=== PATIENT | male | born 1975 | race Caucasian/White ===

== ENCOUNTER 2017-01-22 14:14 | Emergency (ER) | payer SELFPAY ==
[2017-01-22 14:21] VITALS: BP 132/76; PULSE 100; TEMP 99.6; BMI 27.6
[2017-01-22] MEDS ORDERED: IBUPROFEN 600 MG TABLET (FP) PO ONE ×2 (16:00→16:03)
--- NOTE | 2017-01-22 16:17 | PDOC ---
History of Present Illness - General Chief Complaint: Pain Stated Complaint: PAIN Time Seen by Provider: 01/22/17 15:25 History Source: Patient Exam Limitations: No Limitations - History of Present Illness Initial Comments: 01/22/17 16:06 Patient is a 41-year-old male, no significant medical history, currently on no medication, presents emergency department for evaluation of generalized aches and pains, sore throat, fever Tmax of 101 on Saturday. Patient has not tried to take any Motrin or Tylenol, has only taken NyQuil at night. Patient states "I'm just not feeling well". Patient denies any cough, no nausea vomiting or diarrhea , intermittent headache. Generalized musculoskeletal pain with no defined joint pains. Past Medical History: Denies. Allergies: No known allergies Medications: None Family History: Non-contributory Social History: Smokes one pack per day, no alcohol use, or IVDU Review of Systems GENERAL/CONSTITUTIONAL: Fever and chills, generalized aches and pains. No weakness. No weight change. HEAD, EYES, EARS, NOSE AND THROAT: No change in vision. No ear pain or discharge. Sore throat. CARDIOVASCULAR: No chest pain or shortness of breath. RESPIRATORY: No cough, wheezing, or hemoptysis. GASTROINTESTINAL: No nausea, vomiting, diarrhea or constipation. No rectal bleeding. GENITOURINARY: No dysuria, frequency, or change in urination. MUSCULOSKELETAL: No joint or muscle swelling or pain. No neck or back pain. SKIN AND BREASTS: No rash or easy bruising. NEUROLOGIC: No headache, vertigo, loss of consciousness, or loss of sensation. PSYCHIATRIC: No depression or anxiety. ENDOCRINE: No increased thirst. No abnormal weight change. HEMATOLOGIC/LYMPHATIC: No anemia, easy bleeding, or history of blood clots. ALLERGIC/IMMUNOLOGIC: No hives or skin allergy. No latex allergy. Physical Exam: GENERAL: The patient is awake, alert, and fully oriented, in no acute distress. HEAD: Normal with no signs of trauma. EYES: Pupils equal, round and reactive to light, extraocular movements intact, sclera anicteric, conjunctiva clear. ENT: Ears normal, nares patent, oropharynx clear without exudates. Moist mucous membranes. No uvula deviation NECK: Normal range of motion, supple without lymphadenopathy, JVD, or masses. LUNGS: Breath sounds equal, clear to auscultation bilaterally. No wheezes, and no crackles. HEART: Regular rate and rhythm, normal S1 and S2 without murmur, rub or gallop. ABDOMEN: Soft, nontender, normoactive bowel sounds. No guarding, no rebound. No masses. No bruising or abrasions RECTAL : Guaiac negative, normal rectal tone. MUSCULOSKELETAL: Normal range of motion, no edema. No clubbing or cyanosis. No cords, erythema, or tenderness. No CVA Tenderness with fist. NEUROLOGICAL: Cranial nerves II through XII grossly intact. Normal speech, normal gait. SKIN: Warm, Dry, normal turgor, no rashes or lesions noted. Past History - Past Medical History Allergies/Adverse Reactions: Allergies Allergy/AdvReac Type Severity Reaction Status Date / Time No Known Allergies Allergy Verified 01/22/17 14:21 Home Medications: Ambulatory Orders Ibuprofen [Motrin -] 600 mg PO QID #28 tablet 01/22/17 - Psycho/Social/Smoking Cessation Hx Suicidal Ideation: No Smoking History: Current every day smoker Number of Cigarettes Smoked Daily: 20 Information on smoking cessation initiated: No *Physical Exam - Vital Signs Last Vital Signs Temp Pulse Resp BP Pulse Ox 99.6 F 100 H 18 132/76 97 01/22/17 14:17 01/22/17 14:17 01/22/17 14:17 01/22/17 14:17 01/22/17 14:17 Medical Decision Making - Medical Decision Making 01/22/17 16:17 A/P: Patient here for evaluation of fever for 3 days. Has not attempted to take any antipyretic or anti-inflammatory to reduce pain or fever. Current temperature is 99, patient appears well. Eating and drinking without difficulty , rapid strep sent and rapid influenza. Motrin given. 01/22/17 16:43 Rapid influenza and rapid strep and negative, patient with viral symptoms has not been treating herself for fever, will DC patient home on Motrin as needed for fever greater than 101 if fever persists more than 3 days to follow up with PMD. I discussed the physical exam findings, ancillary test results and final diagnoses with the patient. I answered all of the patient's questions. The patient was satisfied with the care received and felt comfortable with the discharge plan and treatment plan. The patient will call to arrange follow-up and will return to the Emergency Department with any new, persistent or worsening symptoms. *DC/Admit/Observation/Transfer Diagnosis at time of Disposition: Fever Qualifiers: Fever type: due to other condition Qualified Code(s): R50.81 - Fever presenting with conditions classified elsewhere - Discharge Dispostion Disposition: HOME Condition at time of disposition: Good Admit: No - Prescriptions Prescriptions: Ibuprofen [Motrin -] 600 mg PO QID #28 tablet - Referrals Referrals: [facility] [Provider Group] - Patient Instructions Printed Discharge Instructions: DI for Fever (Symptom) -- Adult Additional Instructions: Recommend follow-up with primary care doctor in 2 days if symptoms persist Please medicate for fever greater than 101 take either Motrin or Tylenol, may alternate every 4 hours as needed - Post Discharge Activity Work/School Note: Back to Work
== END 2017-01-22 17:30 | disposition home or self-care (01) ==
LOC: JERFT 14:14
DX: R50.9 Fever, unspecified (principal)
CPT/HCPCS: 36415; 87070; 87430; 87804; 99281-25

== ENCOUNTER 2017-08-16 11:27 | Inpatient (IN) | payer SELFPAY ==
[2017-08-16 12:53] VITALS: BMI 26.6
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
[2017-08-16] MEDS ORDERED: chlordiazePOXIDE HCL 25 MG CAPSULE PO ONE (16:20)
[2017-08-16] MEDS ORDERED: MAG HYDROX/AL HYDROX/SIMETH 30 ML UNIT-DOSE CUP PO PRN (16:20)
[2017-08-16] MEDS ORDERED: MAGNESIUM CITRATE 300 ML BOTTLE PO PRN (16:20)
[2017-08-16] MEDS ORDERED: guaiFENesin/D-METHORPHAN HB 10 ML UNIT-DOSE CUPS PO PRN (16:20)
[2017-08-16] MEDS ORDERED: LOPERAMIDE HCL 2 MG CAPSULE PO PRN (16:20)
[2017-08-16] MEDS ORDERED: MENTHOL/PHENOL 1 EACH UD MM PRN (16:20)
[2017-08-16] MEDS ORDERED: NICOTINE POLACRILEX 4 MG GUM BC PRN (16:20)
[2017-08-16] MEDS ORDERED: chlordiazePOXIDE HCL 25 MG CAPSULE PO PRN (16:20)
[2017-08-16] MEDS ORDERED: P-EPHED 60MG/TRIPROLIDI 2.5MG TABLET PO PRN (16:20)
[2017-08-16] MEDS ORDERED: MAGNESIUM HYDROX 2400MG/30ML ORAL SUSPENSION 30 ML CUP PO PRN (16:20)
[2017-08-16] MEDS ORDERED: ACETAMINOPHEN 325 MG TABLET (FP) PO PRN (16:20)
[2017-08-16] MEDS ORDERED: cloNIDine HCL 0.1 MG TABLET PO ONE (17:00)
[2017-08-16] MEDS: chlordiazePOXIDE HCL 25 MG CAPSULE PO SCH ×2 (19:14→22:22)
[2017-08-16] MEDS: NICOTINE 21 MG/24 HOURS TOPICAL PATCH TD SCH (19:14)
[2017-08-16] MEDS: THIAMINE HCL 100 MG TABLET (FP) PO SCH (22:22)
[2017-08-17 00:06] LABS: URINE APPEARANCE CLEAR; URINE BILIRUBIN NEGATIVE (NEGATIVE); URINE BLOOD NEGATIVE (NEGATIVE); URINE COLOR COLORLESS; URINE GLUCOSE (UA) NEGATIVE (NEGATIVE); URINE KETONE NEGATIVE (NEGATIVE); URINE LEUK ESTERASE NEGATIVE (NEGATIVE); URINE NITRITE NEGATIVE (NEGATIVE); URINE PROTEIN NEGATIVE (NEGATIVE); URINE UROBILINOGEN NEGATIVE mg/dL (0.2-1.0)
[2017-08-17] MEDS: chlordiazePOXIDE HCL 25 MG CAPSULE PO SCH ×4 (05:46→22:43)
[2017-08-17] MEDS ORDERED: COLLOIDAL OATMEAL 1 BAR EACH TP PRN (09:12)
[2017-08-17] MEDS: NICOTINE 21 MG/24 HOURS TOPICAL PATCH TD SCH (10:33)
[2017-08-17] MEDS: PRENATAL VITAMINS W/ FOLIC ACID TABLET (FP) PO SCH (10:33)
--- NOTE | 2017-08-17 12:20 | EKG ---
Test Reason : Blood Pressure : / mmHG Vent. Rate : 086 BPM Atrial Rate : 086 BPM P-R Int : 160 ms QRS Dur : 092 ms QT Int : 366 ms P-R-T Axes : -03 -11 003 degrees QTc Int : 437 ms NORMAL SINUS RHYTHM NORMAL ECG NO PREVIOUS ECGS AVAILABLE Confirmed by TEENA OROURKE MD ([id number]) on 08/17/2017 12:20:16 PM Referred By: Confirmed By:TEENA OROURKE MD
[2017-08-17 12:25] LABS: HEMATOCRIT 44.1 % (35.4-49); HEMOGLOBIN 14.4 GM/dL (11.7-16.9); MCH 31.8 pg (25.7-33.7); MCHC 32.7 g/dl (32.0-35.9); MEAN CELL VOLUME 97.1 fl (80-96); MEAN PLT VOLUME 8.3 fl (7.5-11.1); PLATELET COUNT 215 K/MM3 (134-434); RBC 4.54 M/mm3 (4.00-5.60); RDW 15.3 % (11.9-15.9); WHITE BLOOD COUNT 5.3 K/mm3 (4.0-10.0)
[2017-08-17 12:48] LABS: ALBUMIN 4.4 g/dl (3.4-5.0); ANION GAP 7 (8-16); BLOOD UREA NITROGEN 12 mg/dL (7-18); CALCIUM 8.5 mg/dL (8.5-10.1); CHLORIDE 102 mmol/L (98-107); CO2 28 mmol/L (21-32); GLUCOSE,RANDOM 119 mg/dL (74-106); POTASSIUM 3.9 mmol/L (3.5-5.1); SGOT/AST 83 U/L (15-37); SGPT/ALT 88 U/L (12-78); SODIUM 137 mmol/L (136-145)
[2017-08-17 12:50] LABS: ALK PHOS 83 U/L (45-117); BILIRUBIN,TOTAL 0.4 mg/dL (0.2-1.0); TOT PROT 7.9 g/dl (6.4-8.2)
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
--- NOTE | 2017-08-17 17:03 | PN ---
[facility] CIWA - CIWA Score Nausea/Vomitin-No Nausea/No Vomiting Muscle Tremors: 2 Anxiety: 4-Mod. Anxious/Guarded Agitation: 4-Moderately Restless Paroxysmal Sweats: 3 Orientation: 0-Oriented Tacttile Disturbances: 2-Mild Itch/Numbness/Burn Auditory Disturbances: 0-None Visual Disturbances: 1-Very Mild Sensitivity Headache: 0-None Present CIWA-Ar Total Score: 16 S Progress Note (SOAP) Subjective: Sweating, Anxious, Interrupted Sleep, Tremors. Objective: PT. A & O X 3, OBSERVED AMBULATING ON UNIT. NO ACUTE DISTRESS. 08/17/17 17:02 Vital Signs Temperature 97.0 F L 08/17/17 14:42 Pulse Rate 81 08/17/17 14:42 Respiratory Rate 17 08/17/17 14:42 Blood Pressure 116/73 08/17/17 14:42 O2 Sat by Pulse Oximetry (%) Laboratory Tests 08/16/17 08/17/17 08/17/17 15:38 06:00 06:00 WBC 5.3 RBC 4.54 Hgb 14.4 Hct 44.1 MCV 97.1 H MCH 31.8 MCHC 32.7 RDW 15.3 Plt Count 215 MPV 8.3 Sodium 137 Potassium 3.9 Chloride 102 Carbon Dioxide 28 Anion Gap 7 L BUN 12 Creatinine 1.0 Creat Clearance w eGFR > 60 Random Glucose 119 H Calcium 8.5 Total Bilirubin 0.4 AST 83 H ALT 88 H Alkaline Phosphatase 83 Total Protein 7.9 Albumin 4.4 Urine Color Colorless Urine Appearance Clear Urine pH 6.0 Ur Specific [place] 1.002 Urine Protein Negative Urine Glucose (UA) Negative Urine Ketones Negative Urine Blood Negative Urine Nitrite Negative Urine Bilirubin Negative Urine Urobilinogen Negative Ur Leukocyte Esterase Negative RPR Titer HIV 1&2 Antibody Screen HIV P24 Antigen 08/17/17 08/17/17 06:00 06:00 WBC RBC Hgb Hct MCV MCH MCHC RDW Plt Count MPV Sodium Potassium Chloride Carbon Dioxide Anion Gap BUN Creatinine Creat Clearance w eGFR Random Glucose Calcium Total Bilirubin AST ALT Alkaline Phosphatase Total Protein Albumin Urine Color Urine Appearance Urine pH Ur Specific [place] Urine Protein Urine Glucose (UA) Urine Ketones Urine Blood Urine Nitrite Urine Bilirubin Urine Urobilinogen Ur Leukocyte Esterase RPR Titer Nonreactive HIV 1&2 Antibody Screen Negative HIV P24 Antigen Negative LABS NOTED. HCV AB RESULT PENDING. 08/17/17 17:03 Assessment: 08/17/17 17:02 WITHDRAWAL SYMPTOMS. Plan: CONTINUE DETOX. INCREASE DAILY PO FLUID INTAKE.
[2017-08-17] MEDS: THIAMINE HCL 100 MG TABLET (FP) PO SCH (22:43)
[2017-08-17] MEDS: hydrOXYzine PAMOATE 50 MG CAPSULE (FP) PO PRN (22:55)
[2017-08-17] MEDS: IBUPROFEN 400 MG TABLET (FP) PO PRN (22:56)
[2017-08-18] MEDS: chlordiazePOXIDE HCL 25 MG CAPSULE PO SCH ×2 (05:34→10:33)
[2017-08-18] MEDS: PRENATAL VITAMINS W/ FOLIC ACID TABLET (FP) PO SCH (10:33)
[2017-08-18] MEDS: NICOTINE 21 MG/24 HOURS TOPICAL PATCH TD SCH (10:33)
[2017-08-18] MEDS: chlordiazePOXIDE 5 MG CAPSULE PO SCH ×2 (17:22→22:28)
[2017-08-18] MEDS: IBUPROFEN 400 MG TABLET (FP) PO PRN (17:24)
--- NOTE | 2017-08-18 17:30 | PN ---
S CIWA - CIWA Score Nausea/Vomitin Muscle Tremors: 3 Anxiety: 3 Agitation: 2 Paroxysmal Sweats: 1-Minimal Palms Moist Orientation: 0-Oriented Tacttile Disturbances: 1-Very Mild Itch/Numbness Auditory Disturbances: 1-Very Mild Visual Disturbances: 1-Very Mild Sensitivity Headache: 2-Mild CIWA-Ar Total Score: 17 BHS Progress Note (SOAP) Subjective: ALERT,IRRITABLE,ANXIOUS,INTERRUPTED SLEEP,TREMOR Objective: 08/18/17 17:28 Vital Signs Temperature 95.7 F L 08/18/17 13:52 Pulse Rate 77 08/18/17 13:52 Respiratory Rate 18 08/18/17 13:52 Blood Pressure 115/80 08/18/17 13:52 O2 Sat by Pulse Oximetry (%) 08/18/17 17:29 Laboratory Last Values WBC 5.3 K/mm3 (4.0-10.0) 08/17/17 06:00 RBC 4.54 M/mm3 (4.00-5.60) 08/17/17 06:00 Hgb 14.4 GM/dL (11.7-16.9) 08/17/17 06:00 Hct 44.1 % (35.4-49) 08/17/17 06:00 MCV 97.1 fl (80-96) H 08/17/17 06:00 MCH 31.8 pg (25.7-33.7) 08/17/17 06:00 MCHC 32.7 g/dl (32.0-35.9) 08/17/17 06:00 RDW 15.3 % (11.9-15.9) 08/17/17 06:00 Plt Count 215 K/MM3 (134-434) 08/17/17 06:00 MPV 8.3 fl (7.5-11.1) 08/17/17 06:00 Sodium 137 mmol/L (136-145) 08/17/17 06:00 Potassium 3.9 mmol/L (3.5-5.1) 08/17/17 06:00 Chloride 102 mmol/L (98-107) 08/17/17 06:00 Carbon Dioxide 28 mmol/L (21-32) 08/17/17 06:00 Anion Gap 7 (8-16) L 08/17/17 06:00 BUN 12 mg/dL (7-18) 08/17/17 06:00 Creatinine 1.0 mg/dL (0.7-1.3) 08/17/17 06:00 Creat Clearance w eGFR > 60 (>60) 08/17/17 06:00 Random Glucose 119 mg/dL (74-106) H 08/17/17 06:00 Calcium 8.5 mg/dL (8.5-10.1) 08/17/17 06:00 Total Bilirubin 0.4 mg/dL (0.2-1.0) 08/17/17 06:00 AST 83 U/L (15-37) H 08/17/17 06:00 ALT 88 U/L (12-78) H 08/17/17 06:00 Alkaline Phosphatase 83 U/L (45-117) 08/17/17 06:00 Total Protein 7.9 g/dl (6.4-8.2) 08/17/17 06:00 Albumin 4.4 g/dl (3.4-5.0) 08/17/17 06:00 Urine Color Colorless 08/16/17 15:38 Urine Appearance Clear 08/16/17 15:38 Urine pH 6.0 (5.0-8.0) 08/16/17 15:38 Ur Specific [place] 1.002 (1.001-1.035) 08/16/17 15:38 Urine Protein Negative (NEGATIVE) 08/16/17 15:38 Urine Glucose (UA) Negative (NEGATIVE) 08/16/17 15:38 Urine Ketones Negative (NEGATIVE) 08/16/17 15:38 Urine Blood Negative (NEGATIVE) 08/16/17 15:38 Urine Nitrite Negative (NEGATIVE) 08/16/17 15:38 Urine Bilirubin Negative (NEGATIVE) 08/16/17 15:38 Urine Urobilinogen Negative mg/dL (0.2-1.0) 08/16/17 15:38 Ur Leukocyte Esterase Negative (NEGATIVE) 08/16/17 15:38 RPR Titer Nonreactive (NONREACTIVE) 08/17/17 06:00 Hepatitis C Antibody <0.1 s/co ratio (0.0-0.9) 08/17/17 06:00 HIV 1&2 Antibody Screen Negative 08/17/17 06:00 HIV P24 Antigen Negative 08/17/17 06:00 Assessment: 08/18/17 17:29 WITHDRAWAL SYMPTOM Plan: CONTINUE DETOX
[2017-08-18] MEDS: THIAMINE HCL 100 MG TABLET (FP) PO SCH (22:28)
[2017-08-18] MEDS: hydrOXYzine PAMOATE 50 MG CAPSULE (FP) PO PRN (22:35)
[2017-08-19] MEDS: chlordiazePOXIDE 5 MG CAPSULE PO SCH ×2 (05:56→10:56)
[2017-08-19] MEDS: PRENATAL VITAMINS W/ FOLIC ACID TABLET (FP) PO SCH (10:56)
[2017-08-19] MEDS: NICOTINE 21 MG/24 HOURS TOPICAL PATCH TD SCH (10:56)
[2017-08-19] MEDS: TOLNAFTATE 1% CREAM 15 GM TUBE TP SCH ×2 (10:57→22:15)
--- NOTE | 2017-08-19 16:10 | PN ---
[facility] Progress Note (SOAP) Subjective: Fatigue, Body Aches, Tremors. Objective: PT. A & O X 3, OBSERVED AMBULATING ON UNIT. NO ACUTE DISTRESS. 08/19/17 16:09 Vital Signs Temperature 96.2 F L 08/19/17 10:32 Pulse Rate 72 08/19/17 10:32 Respiratory Rate 18 08/19/17 10:32 Blood Pressure 111/69 08/19/17 10:32 O2 Sat by Pulse Oximetry (%) Laboratory Tests 08/16/17 08/17/17 08/17/17 15:38 06:00 06:00 WBC 5.3 RBC 4.54 Hgb 14.4 Hct 44.1 MCV 97.1 H MCH 31.8 MCHC 32.7 RDW 15.3 Plt Count 215 MPV 8.3 Sodium 137 Potassium 3.9 Chloride 102 Carbon Dioxide 28 Anion Gap 7 L BUN 12 Creatinine 1.0 Creat Clearance w eGFR > 60 Random Glucose 119 H Calcium 8.5 Total Bilirubin 0.4 AST 83 H ALT 88 H Alkaline Phosphatase 83 Total Protein 7.9 Albumin 4.4 Urine Color Colorless Urine Appearance Clear Urine pH 6.0 Ur Specific [place] 1.002 Urine Protein Negative Urine Glucose (UA) Negative Urine Ketones Negative Urine Blood Negative Urine Nitrite Negative Urine Bilirubin Negative Urine Urobilinogen Negative Ur Leukocyte Esterase Negative RPR Titer Hepatitis C Antibody HIV 1&2 Antibody Screen HIV P24 Antigen 08/17/17 08/17/17 08/17/17 06:00 06:00 06:00 WBC RBC Hgb Hct MCV MCH MCHC RDW Plt Count MPV Sodium Potassium Chloride Carbon Dioxide Anion Gap BUN Creatinine Creat Clearance w eGFR Random Glucose Calcium Total Bilirubin AST ALT Alkaline Phosphatase Total Protein Albumin Urine Color Urine Appearance Urine pH Ur Specific [place] Urine Protein Urine Glucose (UA) Urine Ketones Urine Blood Urine Nitrite Urine Bilirubin Urine Urobilinogen Ur Leukocyte Esterase RPR Titer Nonreactive Hepatitis C Antibody <0.1 HIV 1&2 Antibody Screen Negative HIV P24 Antigen Negative LABS NOTED. Assessment: 08/19/17 16:09 WITHDRAWAL SYMPTOMS. Plan: CONTINUE DETOX. INCREASE DAILY PO FLUID INTAKE.
[2017-08-19] MEDS: chlordiazePOXIDE HCL 10 MG CAPSULE PO SCH ×2 (17:21→22:16)
[2017-08-19] MEDS: THIAMINE HCL 100 MG TABLET (FP) PO SCH (22:15)
[2017-08-19] MEDS: hydrOXYzine PAMOATE 50 MG CAPSULE (FP) PO PRN (22:17)
[2017-08-20] MEDS: chlordiazePOXIDE HCL 10 MG CAPSULE PO SCH (05:28)
[2017-08-20 09:39] VITALS: BP 104/74; PULSE 76; TEMP 97.3
--- NOTE | 2017-08-20 12:12 | DS ---
[facility] Detox Discharge Summary Admission Date: 08/16/17 Discharge Date: 08/20/17 - History Present History: Alcohol Dependence Additional Comments: DETOX COMPLETED. ALERT O X 3. NAD. PT REPORTS HE HAS TO F/U WITH PMD AT [facility] NEEDED. FORGOT NAME OF HIS DOCTOR BUT CURRENT WITH HIS CARE AT THAT LOCATION. Pertinent Past History: SEE DX BELOW - Physical Exam Results Vital Signs: Vital Signs Temperature 97.3 F L 08/20/17 09:39 Pulse Rate 76 08/20/17 09:39 Respiratory Rate 18 08/20/17 09:39 Blood Pressure 104/74 08/20/17 09:39 O2 Sat by Pulse Oximetry (%) Pertinent Admission Physical Exam Findings: WITHDRAWAL SX Laboratory Last Values WBC 5.3 K/mm3 (4.0-10.0) 08/17/17 06:00 RBC 4.54 M/mm3 (4.00-5.60) 08/17/17 06:00 Hgb 14.4 GM/dL (11.7-16.9) 08/17/17 06:00 Hct 44.1 % (35.4-49) 08/17/17 06:00 MCV 97.1 fl (80-96) H 08/17/17 06:00 MCH 31.8 pg (25.7-33.7) 08/17/17 06:00 MCHC 32.7 g/dl (32.0-35.9) 08/17/17 06:00 RDW 15.3 % (11.9-15.9) 08/17/17 06:00 Plt Count 215 K/MM3 (134-434) 08/17/17 06:00 MPV 8.3 fl (7.5-11.1) 08/17/17 06:00 Sodium 137 mmol/L (136-145) 08/17/17 06:00 Potassium 3.9 mmol/L (3.5-5.1) 08/17/17 06:00 Chloride 102 mmol/L (98-107) 08/17/17 06:00 Carbon Dioxide 28 mmol/L (21-32) 08/17/17 06:00 Anion Gap 7 (8-16) L 08/17/17 06:00 BUN 12 mg/dL (7-18) 08/17/17 06:00 Creatinine 1.0 mg/dL (0.7-1.3) 08/17/17 06:00 Creat Clearance w eGFR > 60 (>60) 08/17/17 06:00 Random Glucose 119 mg/dL (74-106) H 08/17/17 06:00 Calcium 8.5 mg/dL (8.5-10.1) 08/17/17 06:00 Total Bilirubin 0.4 mg/dL (0.2-1.0) 08/17/17 06:00 AST 83 U/L (15-37) H 08/17/17 06:00 ALT 88 U/L (12-78) H 08/17/17 06:00 Alkaline Phosphatase 83 U/L (45-117) 08/17/17 06:00 Total Protein 7.9 g/dl (6.4-8.2) 08/17/17 06:00 Albumin 4.4 g/dl (3.4-5.0) 08/17/17 06:00 Urine Color Colorless 08/16/17 15:38 Urine Appearance Clear 08/16/17 15:38 Urine pH 6.0 (5.0-8.0) 08/16/17 15:38 Ur Specific [place] 1.002 (1.001-1.035) 08/16/17 15:38 Urine Protein Negative (NEGATIVE) 08/16/17 15:38 Urine Glucose (UA) Negative (NEGATIVE) 08/16/17 15:38 Urine Ketones Negative (NEGATIVE) 08/16/17 15:38 Urine Blood Negative (NEGATIVE) 08/16/17 15:38 Urine Nitrite Negative (NEGATIVE) 08/16/17 15:38 Urine Bilirubin Negative (NEGATIVE) 08/16/17 15:38 Urine Urobilinogen Negative mg/dL (0.2-1.0) 08/16/17 15:38 Ur Leukocyte Esterase Negative (NEGATIVE) 08/16/17 15:38 RPR Titer Nonreactive (NONREACTIVE) 08/17/17 06:00 Hepatitis C Antibody <0.1 s/co ratio (0.0-0.9) 08/17/17 06:00 HIV 1&2 Antibody Screen Negative 08/17/17 06:00 HIV P24 Antigen Negative 08/17/17 06:00 - Treatment Hospital Course: Detox Protocol Followed, Detoxed Safely, Responded well, Discharged Condition Good - Medication Discharge Medications: Ambulatory Orders NK [No Known Home Medication] 08/16/17 - Diagnosis (1) Alcohol dependence with uncomplicated withdrawal Status: Acute (2) Nicotine dependence Status: Acute Qualifiers: Nicotine product type: cigarettes Substance use status: in withdrawal Qualified Code(s): F17.213 - Nicotine dependence, cigarettes, with withdrawal (3) Hypercholesterolemia Status: Chronic (4) Hypertension Status: Chronic Qualifiers: Hypertension type: essential hypertension Qualified Code(s): I10 - Essential (primary) hypertension - AMA Did Patient Leave Against Medical Advice: No
== END 2017-08-20 09:20 | disposition home or self-care (01) | DRG 199 ==
LOC: YASAS 11:27 → Y3N 14:44
PROVIDERS: ADMIT Internal Medicine; ATTEND Internal Medicine
PROC: HZ2ZZZZ Detoxification Services for Substance Abuse Treatment (ICD-10-PCS; principal; 2017-08-16)
DX: I10 Essential (primary) hypertension (principal); F10.230 Alcohol dependence with withdrawal, uncomplicated; F17.210 Nicotine dependence, cigarettes, uncomplicated; F32.9 Major depressive disorder, single episode, unspecified; E78.00 Pure hypercholesterolemia, unspecified; Z87.828 Personal history of other (healed) physical injury and trauma
CPT/HCPCS: 36415; 80053; 81003; 85027; 86593; 86803; 87389; 93005; 93010; J0735